=== PATIENT | female | born 1995 | race African-American/Black ===

== ENCOUNTER 2019-08-08 04:45 | Emergency (ER) | payer MEDICAID ==
[~2019-08-08] VITALS: Ht 167.6 cm; Wt 79.4 kg
--- NOTE | 2019-08-08 05:01 | NUR ---
ED Nurse Note: Pt ambulated to ED from home c/o getting a makeup sponge stuck in her vagina. VSS. ERMD at bedside
--- NOTE | 2019-08-08 05:05 | Emergency Room Report ---
History of Present Illness General Chief Complaint: Vaginal Source: Patient Present Illness HPI This is a 24-year-old female with no past medical history. She presents with chief complaint of foreign body in the vaginal area. She is currently on her menstruation and did not have a tampon. She used a make-up sponge instead. Now is stuck in there. This been ongoing for the last 4 hours. No other complaint. No trauma. No discharge. Allergies: Coded Allergies: Crab (Verified Allergy, Unknown, 08/08/19) COVID-19 Screening Contact w/high risk pt: No Recent Travel to affected area: No Experienced COVID-19 symptoms?: No COVID-19 Testing performed TECHNICAL SYSTEM ANALYST: No Patient History Past Medical History: see triage record, old chart reviewed Past Surgical History: none Pertinent Family History: none Social History: Denies: smoking Last Menstrual Period: 08-06-2019 Now: No Immunizations: other Reviewed Nursing Documentation: PMH: Agreed; PSxH: Agreed Review of Systems Eye: Denies: eye pain, blurred vision ENT: Denies: ear pain, nose congestion, throat swelling Respiratory: Denies: cough, shortness of breath Cardiovascular: Denies: chest pain, palpitations Gastrointestinal: Denies: abdominal pain, diarrhea, nausea, vomiting Musculoskeletal: Denies: back pain, joint pain Skin: Denies: rash Neurological: Denies: headache, numbness Endocrine: Denies: increased thirst, increased urine Hematologic/Lymphatic: Denies: easy bruising All Other Systems: negative except mentioned in HPI Physical Exam Vital Signs Date Time Temp Pulse Resp B/P (MAP) Pulse Ox O2 Delivery O2 Flow Rate FiO2 08/08/19 04:49 98.1 68 18 105/68 (80) 96 Room Air Vitals normal Sp02 EP Interpretation: reviewed, normal General Appearance: well appearing, no apparent distress, alert Head: normocephalic, atraumatic Eyes: bilateral eye PERRL, bilateral eye EOMI ENT: hearing grossly normal, normal pharynx Neck: full range of motion, supple, no meningismus Respiratory: chest non-tender, lungs clear, normal breath sounds Cardiovascular #1: regular rate, rhythm, no murmur Gastrointestinal: normal bowel sounds, non tender, no mass, no organomegaly, no bruit, non-distended Genitourinary: other - Pelvic exam done with female nurse as sheetfed press operator. There is a foreign body in the form of a sponge in the vaginal vault. There were 2 wedge shaped sponges. Was also tissue. I removed them with a ring forcep. No complication. Musculoskeletal: back normal, normal range of motion, gait/station normal Psychiatric: mood/affect normal Medical Decision Making Diagnostic Impression: Primary Impression: Vaginal foreign body Qualified Codes: T19.2XXA - Foreign body in vulva and vagina, initial encounter ER Course Patient presents with a vaginal foreign body. No complication. No trauma. Last Vital Signs Date Time Temp Pulse Resp B/P (MAP) Pulse Ox O2 Delivery O2 Flow Rate FiO2 08/08/19 04:49 98.1 68 18 105/68 (80) 96 Room Air Status: improved Disposition: HOME, SELF-CARE Condition: Stable Additional Instructions: Follow-up with your doctor as needed. Return if symptoms worsen. Ian Merlos MD August 08, 2019 05:05
[2019-08-08 05:15] VITALS: BP 105/68
--- NOTE | 2019-08-08 05:17 | NUR ---
ER DISCHARGE NOTE: Patient is cleared to be discharged per ERMD, pt is aox4, on room air, with stable vital signs. pt was given dc and prescription instructions, pt was able to verbalize understanding, pt id band removed. pt is able to ambulate with steady gait. pt took all belongings.
== END 2019-08-08 05:15 | disposition home or self-care (01) ==
LOC: EMR 05:08
DX: T19.2XXA Foreign body in vulva and vagina, initial encounter (principal); X58.XXXA Exposure to other specified factors, initial encounter; Y92.9 Unspecified place or not applicable
CPT/HCPCS: 99282